=== PATIENT | female | born 1995 | race American Indian/Alaskan Native ===

== ENCOUNTER 2018-06-25 21:23 | Emergency (ER) | payer BC ==
[2018-06-25] MEDS ORDERED: NACL 0.9% 1000 ML 1,000 ML IV ONE (22:25)
[2018-06-25 22:58] LABS: Basophils % (Auto) 0.1 % (0.0-1.8); Eosinophils % (Auto) 0.4 % (0.0-4.3); Hematocrit 34.6 % (30.3-42.9); Hemoglobin 11.3 gm/dl (10.1-14.3); Lymphocytes # (Auto) 1.3 K/mm3 (1.2-5.4); Lymphocytes % (Auto) 19.9 % (13.4-35.0); Mean Corpuscular HGB Conc 33 % (30-34); Mean Corpuscular Volume 79 fl (79-97); Monocytes # (Auto) 0.6 K/mm3 (0.0-0.8); Monocytes % (Auto) 9.7 % (0.0-7.3); Platelet Count 327 K/mm3 (140-440); Red Cell Distribution Width 15.6 % (13.2-15.2)
[2018-06-25 23:27] LABS: Alanine Aminotransferase 13 units/L (7-56); Albumin 4.3 g/dL (3.9-5); BUN/Creatinine Ratio 14; Blood Urea Nitrogen 10 mg/dL (7-17); Calcium 8.9 mg/dL (8.4-10.2); Hemolysis Index 5
[2018-06-26 01:05] LABS: HCG Qualitative,Urine Negative (Negative)
[2018-06-26 01:11] LABS: Bilirubin,Urine NEG (Negative); Blood,Urine NEG (Negative); Color,Urine Yellow (Yellow); Mucus,Urine 3+ /HPF; Urobilinogen,Urine < 2.0 mg/dL (<2.0)
[2018-06-26 02:43] VITALS: BP 114/72
[2018-06-26] MEDS ORDERED: ZOFRAN ODT PO ONE (04:41)
[2018-06-26] MEDS ORDERED: ULTRAM PO ONE (04:41)
[2018-06-26] MEDS ORDERED: ULTRAM ONE (04:45)
[2018-06-26] MEDS ORDERED: ZOFRAN ODT ONE (04:45)
--- NOTE | 2018-06-26 05:01 | XRay Report ---
FINAL REPORT EXAM: XR ABDOMEN 1V AP HISTORY: abd pain COMPARISONS: None. FINDINGS: AP views of the abdomen and pelvis No pneumoperitoneum. Nonobstructive bowel gas pattern. No pathologic calcification or fracture. IMPRESSION: No acute findings. Consider additional imaging for worsening/persistent symptoms.
--- NOTE | 2018-06-26 06:44 | Emergency Department Report ---
ED N/V/D HPI - General Chief complaint: Abdominal Pain Stated complaint: CHEST PAIN/SOB/N/V/D Time Seen by Provider: 06/26/18 04:43 Source: patient Mode of arrival: Ambulatory Limitations: No Limitations - History of Present Illness Initial comments: There is a 22-year-old Afro-[place]bian female presents for nausea and vomiting after eating leftover chicken yesterday there is no fever no chills nausea vomiting last night symptoms improved with Zofran given intravascular patient is now tolerating by mouth intake MD complaint: nausea, vomiting, abdominal pain Onset/Timin -: days(s) Description of Vomiting: food contents Description of Diarrhea: other (none) Associated Abdominal Pain: Yes (cramping ) Location: RUQ Radiation: other (righ flank ) Severity: mild Pain Scale: 2 Quality: cramping Consistency: intermittent Improves with: none Worsens with: eating Context: possible food poisoning Associated Symptoms: nausea/vomiting - Related Data Previous Rx's Medication Instructions Recorded Last Taken Type Dicyclomine [Bentyl] 10 mg PO QID PRN #30 capsule 06/26/18 Unknown Rx Ibuprofen 800 mg PO TID PRN #30 tablet 06/26/18 Unknown Rx Ondansetron [Zofran Odt] 4 mg PO Q8HR PRN #12 tab.rapdis 06/26/18 Unknown Rx Allergies Allergy/AdvReac Type Severity Reaction Status Date / Time sulfamethoxazole Allergy Unknown Verified 06/25/18 22:25 [From Bactrim] trimethoprim [From Bactrim] Allergy Unknown Verified 06/25/18 22:25 ED Review of Systems ROS: Stated complaint: CHEST PAIN/SOB/N/V/D Other details as noted in HPI Constitutional: denies: chills, fever Eyes: denies: eye pain, eye discharge, vision change ENT: denies: ear pain, throat pain Respiratory: denies: cough, shortness of breath, wheezing Cardiovascular: denies: chest pain, palpitations Endocrine: no symptoms reported Gastrointestinal: abdominal pain, nausea, vomiting. denies: diarrhea, constipation, hematemesis, melena, hematochezia Genitourinary: denies: urgency, dysuria, discharge Musculoskeletal: denies: back pain, joint swelling, arthralgia Skin: denies: rash, lesions Neurological: denies: headache, weakness, paresthesias Psychiatric: denies: anxiety, depression Hematological/Lymphatic: denies: easy bleeding, easy bruising ED Past Medical Hx - Past Medical History Previous Medical History?: No - Surgical History Past Surgical History?: No - Social History Smoking Status: Current Every Day Smoker Substance Use Type: None - Medications Home Medications: Home Medications Medication Instructions Recorded Confirmed Last Taken Type Dicyclomine [Bentyl] 10 mg PO QID PRN #30 capsule 06/26/18 Unknown Rx Ibuprofen 800 mg PO TID PRN #30 tablet 06/26/18 Unknown Rx Ondansetron [Zofran Odt] 4 mg PO Q8HR PRN #12 tab.rapdis 06/26/18 Unknown Rx ED Physical Exam - General Limitations: No Limitations General appearance: alert, in no apparent distress - Head Head exam: Present: atraumatic, normocephalic - Eye Eye exam: Present: normal appearance, PERRL, EOMI Pupils: Present: normal accommodation - ENT ENT exam: Present: normal orophraynx, mucous membranes moist, TM's normal bilaterally, normal external ear exam - Neck Neck exam: Present: normal inspection, tenderness, full ROM. Absent: meningismus, lymphadenopathy, thyromegaly - Respiratory Respiratory exam: Present: normal lung sounds bilaterally, chest wall tenderness. Absent: respiratory distress, wheezes, stridor - Cardiovascular Cardiovascular Exam: Present: regular rate, normal rhythm, normal heart sounds. Absent: systolic murmur, diastolic murmur, rubs, gallop - GI/Abdominal GI/Abdominal exam: Present: soft, normal bowel sounds. Absent: tenderness, guarding, rebound, organomegaly, bruit, hernia - Rectal Rectal exam: Present: deferred - Extremities Exam Extremities exam: Present: normal inspection, full ROM, normal capillary refill, pedal edema. Absent: tenderness - Back Exam Back exam: Present: normal inspection, full ROM. Absent: tenderness, CVA tenderness (R), CVA tenderness (L), muscle spasm, paraspinal tenderness, vertebral tenderness - Neurological Exam Neurological exam: Present: alert, oriented X3, CN II-XII intact, normal gait - Psychiatric Psychiatric exam: Present: normal affect, normal mood - Skin Skin exam: Present: warm, dry, intact, normal color. Absent: rash ED Course Vital Signs 06/25/18 06/26/18 22:20 02:42 Temperature 97.8 F 98.3 F Pulse Rate 99 H 87 Respiratory 18 14 Rate Blood Pressure 117/78 114/72 O2 Sat by Pulse 98 100 Oximetry ED Medical Decision Making - Lab Data Result diagrams: 06/25/18 22:45 06/25/18 22:45 Labs 06/25/18 06/25/18 06/25/18 22:45 22:45 22:45 WBC 6.6 RBC 4.40 Hgb 11.3 Hct 34.6 MCV 79 MCH 26 L MCHC 33 RDW 15.6 H Plt Count 327 Lymph % (Auto) 19.9 [place] % (Auto) 9.7 H Eos % (Auto) 0.4 Baso % (Auto) 0.1 Lymph # 1.3 [place] # 0.6 Eos # 0.0 Baso # 0.0 Seg Neutrophils % 69.9 Seg Neutrophils # 4.6 Sodium 136 L Potassium 3.6 Chloride 98.9 Carbon Dioxide 24 Anion Gap 17 BUN 10 Creatinine 0.7 Estimated GFR > 60 BUN/Creatinine Ratio 14 Glucose 101 H Calcium 8.9 Total Bilirubin 0.70 AST 18 ALT 13 Alkaline Phosphatase 68 Total Protein 7.9 Albumin 4.3 Albumin/Globulin Ratio 1.2 Lipase 12 L Urine Color Urine Turbidity Urine pH Ur Specific [place] Urine Protein Urine Glucose (UA) Urine Ketones Urine Blood Urine Nitrite Urine Bilirubin Urine Urobilinogen Ur Leukocyte Esterase Urine WBC (Auto) Urine RBC (Auto) U Epithel Cells (Auto) Urine Mucus Urine HCG, Qual 06/26/18 06/26/18 00:19 00:19 WBC RBC Hgb Hct MCV MCH MCHC RDW Plt Count Lymph % (Auto) [place] % (Auto) Eos % (Auto) Baso % (Auto) Lymph # [place] # Eos # Baso # Seg Neutrophils % Seg Neutrophils # Sodium Potassium Chloride Carbon Dioxide Anion Gap BUN Creatinine Estimated GFR BUN/Creatinine Ratio Glucose Calcium Total Bilirubin AST ALT Alkaline Phosphatase Total Protein Albumin Albumin/Globulin Ratio Lipase Urine Color Yellow Urine Turbidity Clear Urine pH 5.0 Ur Specific [place] 1.027 Urine Protein 30 mg/dl Urine Glucose (UA) Neg Urine Ketones 20 Urine Blood Neg Urine Nitrite Neg Urine Bilirubin Neg Urine Urobilinogen < 2.0 Ur Leukocyte Esterase Neg Urine WBC (Auto) 1.0 Urine RBC (Auto) 8.0 U Epithel Cells (Auto) 6.0 Urine Mucus 3+ Urine HCG, Qual Negative - Radiology Data Radiology results: report reviewed, image reviewed FINAL REPORT EXAM: XR ABDOMEN 1V AP HISTORY: abd pain COMPARISONS: None. FINDINGS: AP views of the abdomen and pelvis No pneumoperitoneum. Nonobstructive bowel gas pattern. No pathologic calc ification or fracture. IMPRESSION: No acute findings. Consider additional imaging for worsening/persistent symptoms. Transcribed By: MB Dictated By: CHAPIS HOWELL MD Electronically Authenticated By: CHAPIS HOWELL MD Signed Date/Time: 06/26/18500 DD/ 9 TD/TT: 06/26/18499 - Medical Decision Making Nausea vomiting cramping improvement and Zofran given ed, CBC normal CMP normal UA normal hCG is negative KUB normal. No obstructive gas pattern plan bentyl Zofran ibuprofen probable PCP in 2-3 days continue to by mouth hydrate return to emergency room should symptoms worsen patient verbalized agreement and understanding of the discharge plan patient DC'd home in stable condition at this time Critical care attestation.: If time is entered above; I have spent that time in minutes in the direct care o f this critically ill patient, excluding procedure time. ED Disposition Clinical Impression: Nausea & vomiting Qualifiers: Vomiting type: unspecified Vomiting Intractability: non-intractable Qualified Code(s): R11.2 - Nausea with vomiting, unspecified Disposition: DC-01 TO HOME OR SELFCARE Is pt being admited?: No Does the pt Need Aspirin: No Condition: Stable Instructions: Abdominal Pain (ED), Acute Nausea and Vomiting (ED) Prescriptions: Dicyclomine [Bentyl] 10 mg PO QID PRN #30 capsule PRN Reason: abd spasm Ibuprofen 800 mg PO TID PRN #30 tablet PRN Reason: pain Ondansetron [Zofran Odt] 4 mg PO Q8HR PRN #12 tab.rapdis PRN Reason: Nausea And Vomiting Referrals: [facility] [Outside] - 3-5 Days Forms: Work/School Release Form(ED) Time of Disposition: 06:52
== END 2018-06-26 06:55 | disposition home or self-care (01) ==
LOC: ED 21:23
DX: R11.2 Nausea with vomiting, unspecified (principal); R10.9 Unspecified abdominal pain; F17.200 Nicotine dependence, unspecified, uncomplicated; Z88.2 Allergy status to sulfonamides; Z88.8 Allergy status to other drugs, medicaments and biological substances
CPT/HCPCS: 36415; 74018; 80053; 81001; 81025; 83690; 85025; 93005; 93010; Q0162